=== PATIENT | female | born 1990 | race Caucasian/White ===

== ENCOUNTER → 2016-12-18 | Outpatient (CLI) | payer SELFPAY | LOC: OD 13:52 | PROVIDERS: ATTEND Emergency Medicine | DX: O20.9 Hemorrhage in early pregnancy, unspecified (principal) | CPT/HCPCS: 36415; 84702 ==

== ENCOUNTER 2017-11-14 18:41 | Outpatient (CLI) | payer MEDICAID ==
[2017-11-14 19:39] LABS: APPEARANCE,URINE SLIGHTLY-CLOUDY; BILIRUBIN,URINE NEGATIVE (NEGATIVE); COLOR,URINE YELLOW; GLUCOSE, URINE NEGATIVE (NEGATIVE); KETONES,URINE NEGATIVE (NEGATIVE); LEUKOCYTE ESTERASE,URINE SMALL (NEGATIVE); NITRITE,URINE NEGATIVE (NEGATIVE); PROTEIN,URINE NEGATIVE (NEGATIVE); URINE SPECIFIC GRAVITY 1.026
[2017-11-14 19:54] LABS: URINE AMPHETAMINES SCREEN NEGATIVE; URINE BARBITURATES SCREEN NEGATIVE; URINE BENZODIAZEPINES SCREEN NEGATIVE; URINE COCAINE SCREEN NEGATIVE; URINE MARIJUANA (THC) SCREEN NEGATIVE; URINE METHADONE SCREEN NEGATIVE; URINE PHENCYCLIDINE SCREEN NEGATIVE
[2017-11-14 20:20] LABS: AMNISURE (ROM) NEGATIVE (NEGATIVE)
--- NOTE | 2017-11-14 20:38 | Non Stress Test Report ---
Non Stress Test Datetime Report Generated by CPN: 11/14/2017 20:38 DEMOGRAPHIC Test Number: 1 EGA NST: 37.6 INDICATION Indication for Study: Ordered by Provider Indication for Study (NST) Other: LC MONITORING Monitor Explained: Monitor Explained; Test Explained; Patient Verbalized Understanding Time on Monitor: 11/14/2017 19:04 Time off Monitor: 11/14/2017 19:59 NST Duration: 55 NST INTERVENTIONS NST Interventions: PO Hydration; Reposition Patient Physician Notified NST: Cuellar BABY A: [id number] BABY A Movement : Present Contraction Frequency : irregular FHR Baseline : 145 Accelerations : 15X15 Decelerations : None Variability : Moderate 6-25bpm NST Review: Meets Criteria for Reactive NST NST Review and Verified By : Corie Weiss RNC NST Results: Reactive NST REPORT Report Trigger: Send Report
== END 2017-11-14 21:12 | disposition home or self-care (01) ==
LOC: LC 18:41
PROVIDERS: ATTEND Obstetrics & Gynecology Gynecology
PROC: 4A1HXCZ Monitoring of Products of Conception, Cardiac Rate, External Approach (ICD-10-PCS; principal; 2017-11-14)
DX: O47.1 False labor at or after 37 completed weeks of gestation (principal); Z3A.37 37 weeks gestation of pregnancy
CPT/HCPCS: 59025; 80307; 81001; 84112

== ENCOUNTER 2017-11-17 05:46 | Outpatient (CLI) | payer MEDICAID, OTHER ==
[2017-11-17 06:32] LABS: APPEARANCE,URINE SLIGHTLY-CLOUDY; BILIRUBIN,URINE NEGATIVE (NEGATIVE); COLOR,URINE YELLOW; GLUCOSE, URINE NEGATIVE (NEGATIVE); KETONES,URINE NEGATIVE (NEGATIVE); LEUKOCYTE ESTERASE,URINE TRACE (NEGATIVE); NITRITE,URINE NEGATIVE (NEGATIVE); PROTEIN,URINE NEGATIVE (NEGATIVE); URINE SPECIFIC GRAVITY 1.009; UROBILINOGEN,URINE NEGATIVE mg/dL (<2.0)
[2017-11-17 06:49] LABS: URINE AMPHETAMINES SCREEN NEGATIVE; URINE BARBITURATES SCREEN NEGATIVE; URINE BENZODIAZEPINES SCREEN NEGATIVE; URINE COCAINE SCREEN NEGATIVE; URINE MARIJUANA (THC) SCREEN NEGATIVE; URINE METHADONE SCREEN NEGATIVE; URINE PHENCYCLIDINE SCREEN NEGATIVE
[2017-11-17 07:59] LABS: AMNISURE (ROM) NEGATIVE (NEGATIVE)
[2017-11-17 08:32] LABS: BACTERIA (WET MOUNT) 3+ BACTERIA SEEN; EPITHELIALS (WET MOUNT) 3+ EPITHELIALS SEEN; RBCS (WET MOUNT) RARE RBCS SEEN; T.VAGINALIS (WET MOUNT) NO TRICHOMONAS SEEN; WBCS (WET MOUNT) 3+ WBCS SEEN; YEAST (WET MOUNT) NO YEAST SEEN
== END 2017-11-17 09:03 | disposition home or self-care (01) ==
LOC: LC 05:46
PROVIDERS: ATTEND Obstetrics & Gynecology
PROC: 4A1HXCZ Monitoring of Products of Conception, Cardiac Rate, External Approach (ICD-10-PCS; principal; 2017-11-17)
DX: O47.1 False labor at or after 37 completed weeks of gestation (principal)
CPT/HCPCS: 80307; 81005; 84112; 87210

== ENCOUNTER 2017-11-18 13:38 | Inpatient (IN) | payer MEDICAID, OTHER ==
--- NOTE | 2017-11-18 13:47 | Non Stress Test Report ---
Non Stress Test Datetime Report Generated by CPN: 11/18/2017 13:47 DEMOGRAPHIC EGA NST: 38.2 INDICATION Indication for Study: Ordered by Provider MONITORING Monitor Explained: Monitor Explained; Test Explained; Patient Verbalized Understanding Time on Monitor: 11/17/2017 08:23 Time off Monitor: 11/17/2017 08:45 NST Duration: 22 NST INTERVENTIONS NST Interventions: None Physician Notified NST: Dr. Chaves BABY A: [id number] BABY A Movement : Present Contraction Frequency : 8-12 FHR Baseline : 135 Accelerations : 15X15 Decelerations : None Variability : Moderate 6-25bpm NST Review: Meets Criteria for Reactive NST NST Review and Verified By : J Luis Baidy RN NST Results: Reactive NST REPORT Report Trigger: Send Report
[2017-11-18] MEDS ORDERED: PENICILLIN G POTASSIUM 5,000,000 UNIT in DEXTROSE 5%-WATER 100 ML IV ONE (14:14)
[2017-11-18] MEDS ORDERED: RINGERS SOLUTION,LACTATED 1,000 ML IV ONE (14:14)
[2017-11-18] MEDS ORDERED: PENICILLIN G-K 5 MILLION UNIT VIAL ONE (14:17)
[2017-11-18] MEDS ORDERED: OXYTOCIN/NORMAL SALINE 20 UNIT/1,000 ML RTUINJ ONE (14:18)
[2017-11-18] MEDS ORDERED: LIDOCAINE 1% INJ-PF (10 MG/ML) 30 ML SDV ONE (14:18)
[2017-11-18] MEDS ORDERED: MISOPROSTOL 0.2 MG TABLET ONE (14:18)
[2017-11-18 14:20] LABS: APPEARANCE,URINE SLIGHTLY-CLOUDY; BILIRUBIN,URINE NEGATIVE (NEGATIVE); COLOR,URINE YELLOW; GLUCOSE, URINE NEGATIVE (NEGATIVE); KETONES,URINE NEGATIVE (NEGATIVE); LEUKOCYTE ESTERASE,URINE NEGATIVE (NEGATIVE); NITRITE,URINE NEGATIVE (NEGATIVE); PROTEIN,URINE NEGATIVE (NEGATIVE); URINE SPECIFIC GRAVITY 1.021
--- NOTE | 2017-11-18 14:49 | Admission Physical ---
Datetime Report Generated by CPN: 11/18/2017 14:48 CURRENT ADMISSION Hx Assessment: The History has been Reviewed and is Current Chief Complaint: Uterine Contractions; Sent from OB Office for Evaluation and Treatment - Please Specify Indication for Induction: Not Applicable Admit Impression : Term, Intrauterine ; Active Labor; Ruptured Membranes Admit Plan: Admit to Unit; Initiate Labor Protocol; Initiate Labor Augmentation Protocol ALLERGIES Medication Allergies: No Medication Allergies: No Known Allergies (11/18/2017) Latex: No Latex Allergies Food Allergies: none Environmental Allergies: none OBSTETRICAL HISTORY EDC: 11/29/2017 00:00 : 3 Para: 1 Term: 1 : 0 SAB: 1 IAB: 0 Ectopic: 0 Livin Cesareans: 0 VBACs: 0 Multiple Births: 0 Gestational Diabetes: No Rh Sensitization: No Incompetent Cervix: No ENRIQUE: No Infertility: No ART Treatment: No Uterine Anomaly: No IUGR: No Hx Previous C/S: No Macrosomia: No Hx Loss/Stillborn: No PIH: No Hx : No Placenta Previa/Abruption: No Depression/PP Depression: No PTL/PROM: No Post Hemorrhage: No Current Procedures: Ultrasound; NST Obstetrical History Comments: G1 - 2015 Boy 6 lb G2 - 2016 SAB G3 - current SEE RECORDS Alcohol: No Marijuana : No Cocaine: No Other Illicit Drugs: No Cigarettes: Never Smoker. [id number] MEDICAL HISTORY Diabetes: No Diabetes Type: Gestational Diabetes Blood Transfusion: No Pulmonary Disease (Asthma, TB): No Breast Disease: No Hypertension: No Special Shopper Surgery: No Heart Disease: No Hosp/Surgery: Yes Autoimmune Disorder: No Anesthetic Complications: No Kidney Disease: No Abnormal Pap Smear: No Neuro/Epilepsy: No Psychiatric Disorders: No Other Medical Diseases: No Hepatitis/Liver Disease: No Significant Family History: No Varicosities/Phlebitis: No Trauma/Violence : No Thyroid Dysfunction: No Medical History Comments: childbirth, appendectomy INFECTIOUS HISTORY Gonorrhea: No Genital Herpes: No Chlamydia: No Tuberculosis: No Syphilis: No Hepatitis: No HIV/AIDS Exposure: No Rash or Viral Illness: No HPV: No PHYSICAL EXAM General: Normal HEENT: Deferred Neurologic: Normal Thyroid: Deferred Heart: Normal Lungs: Normal Breast: Deferred Back: Normal Abdomen: Normal Genitourinary Exam: Normal Extremities: Normal DTRs: Normal Pelvic Type: Adequate Physical Exam Comments: pelvis proven to 7lbs Vital Signs: Reviewed; Within Normal Limits MEMBRANES Amniotic Fluid Color: Clear FETUS A EGA: 38.3 Monitoring: External US Accelerations: 15X15 Decelerations: None FHR Category: Category I Presentation: Vertex Admit Comment: 27yo @ 38w3d into clinic this AM and thought to be in early labor with a cervix check of 4-5/90/-2 per Jesus Zaragoza CNM pt. 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 Pt. presented to L_D 3hrs later with a cervical exam as stated and with SROM on arrival to L_D (clear fluid with small amount of blood noted). Pt. is A pos, rubella Immune, GBS positive. Medical hx sig. for appendectomy and strong family hx of DM. Pt. with a normal early 1hr glucola then failed the 3rd trimester 1hr but passed 3hr. EFW at greater than 97%ile at 31w. No significant OB hx other than SAB last year and other stated hx. Will initiate GBS protocol and pain medication as desired. BBOW forebag palpable will rupture after admission. Anticipate delivery. PLANS FOR LABOR AND DELIVERY Labor and Delivery: None Pain Management: Natural Feeding Preference: Breast Benefit of Breast Feed Discussed: Yes Circumcision: N/A INFORMED CONSENT Assignment: Brendan Cuellar MD Signature: with User ID: Misti : with User ID: [email or web address]
[2017-11-18 15:00] LABS: ABSOLUTE EOSINOPHILS # (AUTO) 0.1 10^3/uL (0.0-0.6); ABSOLUTE LYMPHOCYTES (AUTO) 1.4 10^3/uL (0.5-4.7); ABSOLUTE MONOCYTES (AUTO) 0.7 10^3/uL (0.1-1.4); ABSOLUTE NEUT (AUTO) 6.5 10^3/uL (1.7-8.2); BASOPHILS % (AUTO) 0.2 % (0-2); EOSINOPHILS % (AUTO) 0.9 % (0-6); HEMOGLOBIN 10.8 g/dL (12.0-15.5); LYMPHOCYTES % (AUTO) 16.1 % (13-45); MEAN CORPUSCULAR HEMOGLOBIN 30.8 pg (27.0-33.4); MEAN CORPUSCULAR HGB CONC 34.8 g/dL (32.0-36.0); MEAN CORPUSCULAR VOLUME 88 fl (80-97); MONOCYTES % (AUTO) 7.7 % (3-13); PLATELET COUNT 183 10^3/uL (150-450); RED CELL DISTRIBUTION WIDTH 13.4 % (11.5-14.0); SEGMENTED NEUTROPHILS % (AUTO) 75.1 % (42-78); TOTAL CELLS COUNTED % (AUTO) 100 %; WHITE BLOOD COUNT 8.7 10^3/uL (4.0-10.5)
[2017-11-18 15:22] LABS: URINE AMPHETAMINES SCREEN NEGATIVE; URINE BARBITURATES SCREEN NEGATIVE; URINE BENZODIAZEPINES SCREEN NEGATIVE; URINE MARIJUANA (THC) SCREEN NEGATIVE; URINE METHADONE SCREEN NEGATIVE; URINE PHENCYCLIDINE SCREEN NEGATIVE
[2017-11-18 15:23] LABS: URINE COCAINE SCREEN NEGATIVE
--- NOTE | 2017-11-18 15:25 | L&D Progress Notes ---
PROGRESS NOTES Datetime Report Generated by CPN: 11/18/2017 15:25 PROGRESS NOTE Impression: Normal Progression of Labor Procedures: Sterile Vag Exam Procedures- Other: AROM of forebag Plan: Continue Present Management Informed Consent Obtained: Vaginal Delivery; Risks, Benefits and Alternatives Discussed Vital Signs : Reviewed; Within Normal Limits Comment: S: pt. breathing with contractions, desires unmedicated O: VSS,cervix as stated, cat I tracing A: IUP @ 38w3d, GBS positive- PCN for prophylaxis given, SROM-forebag AROM'ed clear fluid P: continue with expectant management, epidural prn. VAGINAL EXAM Contractions: irregular MEMBRANES Membranes: Ruptured Amniotic Fluid Color: Clear Amniotic Fluid Color: Clear FETUS A FHR - Baseline: 155 Monitoring: External US Variability: Moderate 6-25bpm Accelerations: 15X15 Decelerations: None FHR Category: Category I Presentation: Vertex SIGNATURE SIGNATURE: [id number];[id number];[id number] SIGNATURE: [id number];[id number] SIGNATURE: [id number] SIGNATURE: [id number] Assignment: Brendan Cuellar MD Signature: with User ID: Misti : with User ID: [email or web address]
[2017-11-18] MEDS ORDERED: FENTANYL CITRATE INJ/PF 100 MCG/2 ML AMPUL IV ONE (15:52)
[2017-11-18] MEDS ORDERED: FENTANYL CITRATE INJ/PF 100 MCG/2 ML AMPUL ONE (15:53)
[2017-11-18] MEDS ORDERED: ACETAMINOPHEN 325 MG TABLET PO PRN (17:24)
[2017-11-18] MEDS ORDERED: NA PHOS,M-B/NA PHOS,DI-BA (ADULT) 133 ML ENEMA PR PRN (17:24)
[2017-11-18] MEDS ORDERED: PROMETHAZINE HCL 25 MG TABLET PO PRN (17:24)
[2017-11-18] MEDS ORDERED: BENZOCAINE/MENTHOL AEROSOL SPRAY 56 ML TOP PRN (17:24)
[2017-11-18] MEDS ORDERED: DIPH/PERTUSS(ACELL)/TETANUS VAC/PF 0.5 ML SYR (>=10YO) IM PRN (17:24)
[2017-11-18] MEDS ORDERED: GLYCERIN/WITCH HAZEL LEAF 1 EACH MED..PAD TP PRN (17:24)
[2017-11-18] MEDS ORDERED: DIBUCAINE 1% OINTMENT 28 GM TP PRN (17:24)
[2017-11-18] MEDS ORDERED: PROMETHAZINE HCL 25 MG SUPP.RECT PR PRN (17:24)
[2017-11-18] MEDS ORDERED: PSEUDOEPHEDRINE HCL 30 MG TABLET PO PRN (17:24)
[2017-11-18] MEDS ORDERED: ACETAMINOPHEN WITH CODEINE #3 TABLET PO PRN ×2 (17:24)
[2017-11-18] MEDS ORDERED: DIPHENHYDRAMINE HCL 25 MG CAPSULE PO PRN (17:24)
[2017-11-18] MEDS ORDERED: MAGNESIUM HYDROXIDE SUSP 30 ML UDCUP PO PRN (17:24)
[2017-11-18] MEDS ORDERED: PROMETHAZINE HCL INJ 25 MG/1 ML VIAL IV PRN (17:24)
[2017-11-18] MEDS ORDERED: MEASLES,MUMPS&RUBELLA VACC/PF 0.5 ML VIAL SUBCUT PRN (17:24)
[2017-11-18] MEDS ORDERED: OXYTOCIN/NORMAL SALINE 20 UNIT/1,000 ML RTUINJ IV PRN (17:24)
[2017-11-18] MEDS ORDERED: PENICILLIN G POTASSIUM 2,500,000 UNIT in DEXTROSE 5%-WATER 50 ML IV SCH (18:16)
--- NOTE | 2017-11-18 19:43 | Delivery Summary ---
Del Sum A-C Datetime Report Generated by CPN: 11/18/2017 19:43 DELIVERY PERSONNEL DELIVERY PERSONNEL: [id number] Delivery Doctor:: Josephine Wayne CNM Labor and Delivery Nurse:: Leslie SERRATO RNlaborer adjustable steel joist Nurse:: Alice Magallanes RN Student Observers:: Jesus CASILLAS RN; Corie COTA RN Weight Loss Centre Manager/INSPECTOR METAL CAN: Ita Chow CNA II Weight Loss Centre Manager/INSPECTOR METAL CAN: Millicent Hays HOUSE STEWARD/STEWARDESS Additional Personnel: : Helen Christianson RN/ Gladys GOLDSTEIN RN MATERNAL INFORMATION Delivery Anesthesia: None Medications During Delivery: N/A Medications After Delivery: Pitocin Bolus-Please Comment; Pitocin Drip 20 Units/1000ml NSS Maternal Complications: None Provider Comments: pt. progressed to 9/c/0 with urge to push then progressed to c/c/1. Pt. continued pushing and with much coaching went on to deliver a viable baby girl in OP presentation. Head easily delivered, shoulders delivered with some difficulty.Baby placed on maternal abdomen with spontaneous cry and respiratory effort spontaneously at . Mother and baby skin to skin, cord allowed to stop pulsating then clamped x2 and cut by FOB (3vc noted, cord blood obtained). Placenta delivered spontaneously intact. Laceration as stated and hemostatic. Fundus firm at U-1, bleeding minimal, mother and baby continue skin to skin stable and bonding at this time. LABOR SUMMARY EDC: 11/29/2017 00:00 No. Babies in Womb: 1 Attempted: No Labor Anesthesia: None LABOR INFORMATION Reason for Induction: Not Applicable Onset of Labor: 11/18/2017 15:13 Complete Dilatation: 11/18/2017 16:45 Oxytocin: N/A Group B Beta Strep: POSITIVE Antibiotics # of Doses: 1 Antibiotics Time of Last Dose: 1431 Name of Antibiotic Given: PENICILLIN G Steroids Given: None Reason Steroids Not Administered: Not Applicable MEMBRANES Membranes Rupture Method: Spontaneous Rupture of Membranes: 11/18/2017 13:51 Length of Rupture (hr): 3.12 Amniotic Fluid Color: Clear Amniotic Fluid Amount: Scant Amniotic Fluid Odor: Normal STAGES OF LABOR Stage 1 hr: 1 Stage 1 min: 32 Stage 2 hr: 0 Stage 2 min: 13 Stage 3 hr: 0 Stage 3 min: 7 Total Time in Labor hr: 1 Total Time in Labor min: 52 VAGINAL DELIVERY Episiotomy: None Laceration #1: Perineal Laceration Extension #1: N/A Other Laceration: SUPERFICIAL MIDLINE Laceration Repair: Yes Laceration Repair Note: 2-[address] 1 stitch, hemostastic Sponge Count Correct: N/A Sharps Count Correct: N/A CSECTION DELIVERY Primary Indication: N/A Secondary Indication: N/A CSection Incidence: N/A Labor: N/A Elective: N/A CSection Incision: N/A BABY A INFORMATION Delivery Date/Time: 11/18/2017 16:58 Method of Delivery: Vaginal Born in Route : No : N/A Forceps: N/A Vacuum Extraction: N/A Shoulder Dystocia : No PRESENTATION/POSITION BABY A Presentation: Cephalic Cephalic Presentation: Vertex Vertex Position: DOP Breech Presentation: N/A PLACENTA INFORMATION BABY A Placenta Delivery Time : 11/18/2017 17:05 Placenta Method of Delivery: Spontaneous Placenta Status: Delivered SCORES BABY A Heart Rate 1 min: >100 bpm Resp Effort 1 min: Slow, Irregular Reflex Irritability 1 min: Cough or Sneeze or Pulls Away Muscle Tone 1 min: Active Motion Color 1 min: Body [place], Extremities Blue Resuscitation Effort 1 min: Tactile Stimulation SCORE 1 MIN: 8 Heart Rate 5 min: >100 bpm Resp Effort 5 min: Good Cry Reflex Irritability 5 min: Cough or Sneeze or Pulls Away Muscle Tone 5 min: Active Motion Color 5 min: Body [place], Extremities Blue Resuscitation Effort 5 min: Tactile Stimulation SCORE 5 MIN: 9 INFANT INFORMATION BABY A Gestational Age at Delivery: 38.3 Gestational Status: Early Term- 37- 38.6 Weeks Outcome : Liveborn Condition : Stable Infant Sex: Female IDENTIFICATION BABY A Infant Verification Date/Time: 11/18/2017 17:41 ID Band Number: [id number] Mother's Name Verified: Yes Infant RN Verifying Infant: CZia Edwardsck RN Additional Verifying Personnel: Jesus Serrato RN WEIGHT/LENGTH BABY A Infant Birthweight (gm): 3830 Infant Weight (lb): 8 Infant Weight (oz): 7 Length (in): 20.50 Length (cm): 52.07 CORD INFORMATION BABY A No. Cord Vessels: 3 Nuchal Cord : N/A Cord Blood Taken: Yes-For Storage (Mom's Blood type +) Infant Suction: None ASSESSMENT BABY A Complications: None Physical Findings at Delivery: Within Normal Limits Infant Respirations: Appears Normal Skin to Skin: Yes Skin to Skin Time (min): 60 Senior Technical Support Engineer/ALS Called : No Infant Care By: Leslie CHRISTIANSON RN/ Gladys GOLDSTEIN RN Transferred To: Remains with Mother BABY B INFORMATION : N/A SIGNATURES Assignment: Brendan Cuellar MD Signature: with User ID: Misti : with User ID: [email or web address]
[2017-11-18] MEDS: FAMOTIDINE 20 MG TABLET PO SCH (22:26)
[2017-11-18] MEDS: FERROUS SULFATE 325 MG TABLET PO SCH (22:26)
[2017-11-18] MEDS: DOCUSATE SODIUM 100 MG CAPSULE PO SCH (22:26)
[2017-11-18] MEDS: IBUPROFEN 800 MG TABLET PO SCH (22:26)
[2017-11-19] MEDS: IBUPROFEN 800 MG TABLET PO SCH ×3 (05:38→21:29)
[2017-11-19 07:53] LABS: HEMATOCRIT 30.4 % (36.0-47.0); HEMOGLOBIN 10.4 g/dL (12.0-15.5); MEAN CORPUSCULAR HEMOGLOBIN 30.7 pg (27.0-33.4); MEAN CORPUSCULAR HGB CONC 34.2 g/dL (32.0-36.0); MEAN CORPUSCULAR VOLUME 90 fl (80-97); PLATELET COUNT 186 10^3/uL (150-450); RED BLOOD COUNT 3.39 10^6/uL (3.72-5.28); RED CELL DISTRIBUTION WIDTH 13.4 % (11.5-14.0); WHITE BLOOD COUNT 11.4 10^3/uL (4.0-10.5)
--- NOTE | 2017-11-19 09:07 | PDOC PROGRESS REPORT ---
Subjective Progress Note for:: 11/19/17 Subjective:: doing well. minimal lochia. tolerate diet. ambulating Reason For Visit: Physical Exam - Physical Exam Vital Signs: Temp Pulse Resp BP Pulse Ox 98.3 F 67 20 122/71 100 11/19/17 07:38 11/19/17 07:38 11/19/17 07:38 11/19/17 07:38 11/19/17 07:38 Intake & Output 11/18/17 11/19/17 11/20/17 06:59 06:59 06:59 Intake Total 600 Balance 600 Weight 97.8 kg General appearance: PRESENT: no acute distress, cooperative GI/Abdominal exam: PRESENT: soft - Obstetrical Exam Fundal Height: 1/u - 2/u Result Laboratory Results: 11/19/17 07:18 11/18/17 11/18/17 11/18/17 13:46 14:45 14:45 WBC 8.7 RBC 3.50 L Hgb 10.8 L Hct 31.0 L MCV 88 MCH 30.8 MCHC 34.8 RDW 13.4 Plt Count 183 Seg Neutrophils % 75.1 Lymphocytes % 16.1 Monocytes % 7.7 Eosinophils % 0.9 Basophils % 0.2 Absolute Neutrophils 6.5 Absolute Lymphocytes 1.4 Absolute Monocytes 0.7 Absolute Eosinophils 0.1 Absolute Basophils 0.0 Urine Color YELLOW Urine Appearance SLIGHTLY-CLOUDY Urine pH 5.0 Ur Specific [place] 1.021 Urine Protein NEGATIVE Urine Glucose (UA) NEGATIVE Urine Ketones NEGATIVE Urine Blood NEGATIVE Urine Nitrite NEGATIVE Ur Leukocyte Esterase NEGATIVE Blood Type A POSITIVE Antibody Screen NEGATIVE 11/19/17 07:18 WBC 11.4 H RBC 3.39 L Hgb 10.4 L Hct 30.4 L MCV 90 MCH 30.7 MCHC 34.2 RDW 13.4 Plt Count 186 Seg Neutrophils % Lymphocytes % Monocytes % Eosinophils % Basophils % Absolute Neutrophils Absolute Lymphocytes Absolute Monocytes Absolute Eosinophils Absolute Basophils Urine Color Urine Appearance Urine pH Ur Specific [place] Urine Protein Urine Glucose (UA) Urine Ketones Urine Blood Urine Nitrite Ur Leukocyte Esterase Blood Type Antibody Screen Assessment & Plan - Diagnosis (1) GBS (group B Streptococcus carrier), +RV culture, currently Is this a current diagnosis for this admission?: Yes (2) PROM with onset of labor within 24 hours of rupture Qualifiers: PROM gestational age: full term Qualified Code(s): O42.02 - Full-term premature rupture of membranes, onset of labor within 24 hours of rupture Is this a current diagnosis for this admission?: Yes (3) Qualifiers: Weeks of gestation: 40 weeks Qualified Code(s): Z3A.40 - 40 weeks gestation of Is this a current diagnosis for this admission?: Yes - Time Time Spent with patient: Less than 15 minutes Anticipated discharge: Home Within: within 24 hours
[2017-11-19] MEDS: PRENATAL VITAMIN W DHA CAPSULE PO SCH (09:36)
[2017-11-19] MEDS: FAMOTIDINE 20 MG TABLET PO SCH ×2 (09:36→21:30)
[2017-11-19] MEDS: FERROUS SULFATE 325 MG TABLET PO SCH ×2 (09:36→18:49)
[2017-11-19] MEDS: DOCUSATE SODIUM 100 MG CAPSULE PO SCH ×2 (09:36→18:50)
[2017-11-19] MEDS: SENNOSIDES/DOCUSATE 8.6-50 MG 1 EACH TABLET PO SCH (09:36)
[2017-11-20] MEDS: IBUPROFEN 800 MG TABLET PO SCH (06:40)
--- NOTE | 2017-11-20 10:31 | PDOC DISCHARGE SUMMARY ---
Final Diagnosis Discharge Date: 11/20/17 - Final Diagnosis (1) Vaginal delivery Is this a current diagnosis for this admission?: Yes Discharge Data - Discharge Medication Home Medications: Vit Calc,Iron,Folic [ Vitamins] 1 tab PO DAILY 11/17/17 Procedures: None Intrapartum Procedure(s): Spontaneous Vaginal Delivery - Diagnosis Test Laboratory: Temp Pulse Resp BP Pulse Ox 98.0 F 69 17 129/72 H 98 11/20/17 08:12 11/20/17 08:12 11/20/17 08:12 11/20/17 08:12 11/20/17 08:12 11/18/17 11/18/17 11/19/17 13:46 14:45 07:18 RBC 3.50 L 3.39 L Hgb 10.8 L 10.4 L Hct 31.0 L 30.4 L Urine Opiates Screen NEGATIVE - Discharge information/Instructions Discharge Activity: Activity As Tolerated Discharge Diet: Regular Disposition: HOME, SELF-CARE Follow up with: [facility] in: 3, 4
[2017-11-20] MEDS: FAMOTIDINE 20 MG TABLET PO SCH (10:40)
[2017-11-20] MEDS: FERROUS SULFATE 325 MG TABLET PO SCH (10:40)
[2017-11-20] MEDS: DOCUSATE SODIUM 100 MG CAPSULE PO SCH (10:40)
[2017-11-20] MEDS: PRENATAL VITAMIN W DHA CAPSULE PO SCH (10:40)
[2017-11-20] MEDS: SENNOSIDES/DOCUSATE 8.6-50 MG 1 EACH TABLET PO SCH (10:40)
[2017-11-20 13:29] VITALS: BP 129/72
== END 2017-11-20 14:14 | disposition home or self-care (01) | DRG 775 ==
LOC: LC 13:38 → LR 14:50 → 2S 19:56
PROVIDERS: ADMIT Obstetrics & Gynecology Gynecology; ATTEND Obstetrics & Gynecology Gynecology
PROC: 10E0XZZ Delivery of Products of Conception, External Approach (ICD-10-PCS; principal; 2017-11-18)
PROC: 0HQ9XZZ Repair Perineum Skin, External Approach (ICD-10-PCS; 2017-11-18)
DX: O24.429 Gestational diabetes mellitus in childbirth, unspecified control (principal); O99.824 Streptococcus B carrier state complicating childbirth; O70.0 First degree perineal laceration during delivery; Z3A.38 38 weeks gestation of pregnancy; Z37.0 Single live birth
CPT/HCPCS: 36415; 80307; 81005; 85025; 85027; 86592; 86850; 86900; 86901; J2540; J2590; J3010; J3490

== ENCOUNTER → 2019-09-22 | Outpatient (CLI) | payer BC, MEDICAID | LOC: OD 09:27 | PROVIDERS: ATTEND Obstetrics & Gynecology | DX: Z32.02 Encounter for pregnancy test, result negative (principal) | CPT/HCPCS: 36415; 84702 ==